=== PATIENT | female | born 1995 | race Caucasian/White ===

== ENCOUNTER 2022-12-14 06:45 | Emergency (ER) | payer MEDICAID, SELFPAY ==
[2022-12-14 06:57] VITALS: BP 110/74; PULSE 98; RESP 16; TEMP 36.9; O2SAT 99; BMI 27.5
--- NOTE | 2022-12-14 07:19 | ED_ITS ---
HPI - URI/Sore Throat General Chief Complaint: Upper Respiratory Infection Stated Complaint: SORE THROAT Time Seen by Provider: 12/14/22 07:03 Source: patient Limitations: no limitations History of Present Illness HPI Narrative: The patient presenting to us with hoarse voice and cough with a diagnosis of upper respiratory tract infection by urgent care for the last 3 days, the patient mentioned that she have a dry throat from all the coughing she is denying any diarrhea nausea vomiting or any chest pain or abdominal pain Also denies any difficulty breathing the patient ready was started on azithromycin by the urgent care and she started that yesterday Related Data Home Medications Medication Instructions Recorded Confirmed azithromycin 500 mg tablet mg 12/14/22 prednisone 20 mg tablet mg 12/14/22 pyrilamine 7.5 mg-dextromethorphan ml PO 12/14/22 7.5 mg/5 mL oral liquid ([facility]) Previous Rx's Medication Instructions Recorded famotidine 20 mg tablet (Pepcid) 20 mg PO BID #14 tabs 12/14/22 Allergies Allergy/AdvReac Type Severity Reaction Status Date / Time No Known Drug Allergies Allergy Verified 12/14/22 07:02 Review of Systems ROS Status of ROS 10 or more systems reviewed and unremarkable except as noted in history and below [facility] Social History Smoking status: Never smoker Exam Narrative Exam Narrative: Nurses notes and vital signs reviewed and patient is not hypoxic. General: Well-appearing and in no apparent distress. Skin: Warm, dry, no pallor noted. No rash. Head: Normocephalic, atraumatic. Neck: Supple, non-tender. Eye: Pupils are equal, round and EOMI. No scleral icterus. Ears, Nose, Mouth, and Throat: TM are clear, no nasal mucosal hypertrophy. Oral mucosa is moist, no posterior oropharynx erythema, uvula is mid-line Cardiovascular: Regular Rate and Rhythm without murmur, gallop or rub. Respiratory: No accessory muscle use or respiratory distress. Lungs are clear to auscultation, no wheezing, rales or rhonchi Chest Wall: no tenderness Back: No midline thoracic or lumbar vertebral tenderness. No CVA tenderness Musculoskeletal: normal ROM, no calf or popliteal tenderness, no lower extremity edema/swelling GI: Abdomen is soft, non-distended. Normal bowel sounds. No masses appreciated. No tenderness to palpation. No rebound, guarding, or rigidity noted. Neurological: A&O x4. No cranial nerve dysfunction observed. No truncal ataxia. Moves all extremities. Sensation intact. Psychiatric: Cooperative and interactive. Normal mood and affect. Constitutional Vital Signs, click to edit/add: Last Vital Signs Temp 98.4 F 12/14/22 06:57 Pulse 98 H 12/14/22 06:57 Resp 16 12/14/22 06:57 BP 110/74 12/14/22 06:57 Pulse Ox 99 12/14/22 06:57 O2 Del Method Room Air 12/14/22 06:57 Course Vital Signs Vital signs: Vital Signs Temperature 98.4 F 12/14/22 06:57 Pulse Rate 98 H 12/14/22 06:57 Respiratory Rate 16 12/14/22 06:57 Blood Pressure 110/74 12/14/22 06:57 Pulse Oximetry 99 12/14/22 06:57 Oxygen Delivery Method Room Air 12/14/22 06:57 Temperature 98.4 F 12/14/22 06:57 Pulse Rate 98 H 12/14/22 06:57 Respiratory Rate 16 12/14/22 06:57 Blood Pressure 110/74 12/14/22 06:57 Pulse Oximetry 99 12/14/22 06:57 Oxygen Delivery Method Room Air 12/14/22 06:57 MDM - URI/Sore Throat MDM Narrative Medical decision making narrative: Except for the hoarse voice the patient examination was benign her presentation is mostly secondary to laryngitis secondary to a viral infection should he had a COVID test done at the outpatient it was negative and she is already taking azithromycin I did explain to the patient that a viral infection will take time to heal she would be having supportive care and taking prednisone with a azithromycin I did tell her to take 40 mg daily for 3 days The patient also to continue hydration have humidifier at the bedside The patient is to follow up with primary care physician in next 2-3 days or to return to the emergency department should any of the signs or symptoms worsen or new symptoms develop. The patient agrees with the following Diagnosis and Treatment plan and the patient will be discharged home. Discharge Plan Discharge Chief Complaint: Upper Respiratory Infection Clinical Impression: Laryngitis Patient Disposition: Home, Self-Care Time of Disposition Decision: 07:21 Condition: Good Prescriptions / Home Meds: New famotidine [Pepcid] 20 mg tablet 20 mg PO BID Qty: 14 0RF No Action azithromycin 500 mg tablet prednisone 20 mg tablet [facility] 7.5-7.5 mg/5 mL liquid PO Instructions: Cold Symptoms (ED) Stand Alone Forms: Portal Instructions Referrals: Physician,Non-Staff, MD [Primary Care Provider] - 1 week
[2022-12-14] MEDS: PREDNISONE 20 MG TABLET 40 MG PO (07:27)
[2022-12-14] MEDS: FAMOTIDINE 20 MG TABLET PO (07:28)
[2022-12-14 07:32] VITALS: BP 122/84; PULSE 90; RESP 16; O2SAT 99
== END 2022-12-14 07:33 | disposition home or self-care (01) ==
PROVIDERS: Emergency Provider Emergency Medicine; Family Provider Family Medicine
DX: J04.0 Acute laryngitis (principal); Z79.899 Other long term (current) drug therapy
CPT/HCPCS: 99283